=== PATIENT | female | born 1985 | race Caucasian/White ===

== ENCOUNTER 2017-02-03 15:11 | Emergency (ER) | payer OTHER ==
[2017-02-03 15:55] VITALS: BP 121/70; BMI 28.3
--- NOTE | 2017-02-03 15:57 | PDOC ---
Rapid Medical Evaluation Chief Complaint: Cold Symptoms Time Seen by Provider: 02/03/17 15:54 Medical Evaluation: Allergies Allergy/AdvReac Type Severity Reaction Status Date / Time No Known Allergies Allergy Verified 02/03/17 15:55 Vital Signs Temp Pulse Resp BP Pulse Ox 102.8 F H 95 H 20 121/70 100 02/03/17 15:49 02/03/17 15:49 02/03/17 15:49 02/03/17 15:49 02/03/17 15:49 02/03/17 15:56 URI with fevers 102.3- cough/ body aches / sorethroat pain x 2 days - works as [employer] in [facility] with exposure to INfluenza Sent INFLUENZA test 02/03/17 15:57
[2017-02-03] MEDS ORDERED: ACETAMINOPHEN 325 MG TABLET (FP) PO ONE (16:08)
--- NOTE | 2017-02-03 16:16 | PDOC ---
History of Present Illness - General Chief Complaint: Cold Symptoms Stated Complaint: FLU, COUGH, FEVER Time Seen by Provider: 02/03/17 15:54 History Source: Patient Exam Limitations: No Limitations - History of Present Illness Initial Comments: 02/03/17 16:16 CHIEF COMPLAINT: Fever HISTORY OF PRESENT ILLNESS: This is an otherwise healthy 31 year old female who presents for evaluation of 2 days of fever and bodyaches. 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 V/s on arrival are notable for T 102.8 and P 95. REVIEW OF SYSTEMS: GENERAL/CONSTITUTIONAL: Two days of fever, malaise. No weight change. HEAD, EYES, EARS, NOSE AND THROAT: No change in vision. No ear pain or discharge. No sore throat. CARDIOVASCULAR: No chest pain or palpitations. RESPIRATORY: Dry cough. No wheezing, or shortness of breath. GASTROINTESTINAL: Nausea. No vomiting, diarrhea, or constipation. GENITOURINARY: No dysuria, frequency, or change in urination. MUSCULOSKELETAL: No joint or muscle swelling or pain. No neck or back pain. SKIN: No rash or easy bruising. NEUROLOGIC: No headache, vertigo, loss of consciousness, or loss of sensation. PSYCHIATRIC: No depression or anxiety. ENDOCRINE: No increased thirst. No abnormal weight change. HEMATOLOGIC/LYMPHATIC: No anemia, easy bleeding, or history of blood clots. ALLERGIC/IMMUNOLOGIC: No hives or skin allergy. No latex allergy. PHYSICAL EXAM: GENERAL: The patient is awake, alert, and fully oriented, in no acute distress. HEAD: Normal with no signs of trauma. ENT: Pupils equal, round and reactive to light, extraocular movements intact, sclera anicteric, conjunctiva clear. Neck supple. LUNGS: Clear to auscultation bilaterally. Normal excursion. No respiratory distress or use of accessory muscles. CV: RRR, S1/S2, no MRG. Cap refill < 2 sec. ABDOMEN: Soft, non-distended, non-tender. EXTREMITIES: Normal range of motion, no edema. NEUROLOGICAL: Normal speech, normal gait. CN II-XII grossly intact. PSYCH: Normal mood, normal affect. SKIN: Warm, dry, normal turgor, no rashes or lesions noted. Past History - Past Medical History Allergies/Adverse Reactions: Allergies Allergy/AdvReac Type Severity Reaction Status Date / Time No Known Allergies Allergy Verified 02/03/17 15:55 Home Medications: Ambulatory Orders Ibuprofen [Motrin -] 600 mg PO QID PRN #30 tablet 02/03/17 Oseltamivir Phosphate [Tamiflu] 75 mg PO BID #10 capsule 02/03/17 Other medical history: DENIES - Psycho/Social/Smoking Cessation Hx Anxiety: No Suicidal Ideation: No Smoking History: Never smoked Hx Alcohol Use: No Drug/Substance Use Hx: No Substance Use Type: None *Physical Exam - Vital Signs Last Vital Signs Temp Pulse Resp BP Pulse Ox 102.8 F H 95 H 20 121/70 100 02/03/17 15:49 02/03/17 15:49 02/03/17 15:49 02/03/17 15:49 02/03/17 15:49 ED Treatment Course - Medications Given in the ED: ED Medications Discontinued Medications Generic Name Dose Route Start Last Admin Trade Name Freq PRN Reason Stop Dose Admin Acetaminophen 650 mg 02/03/17 16:08 02/03/17 16:10 Tylenol - PO 02/03/17 16:09 650 mg ONCE ONE Administration Medical Decision Making - Medical Decision Making 02/03/17 17:29 A/P: Healthy 31 year old female with flu-like symptoms and influenza exposure. 1. Tylenol for fever given with resolution 2. Flu swab 02/03/17 18:33 Rapid flu is negative, however have high suspicion and will treat. *DC/Admit/Observation/Transfer Diagnosis at time of Disposition: Influenza - Discharge Dispostion Disposition: HOME Condition at time of disposition: Stable Admit: No - Prescriptions Prescriptions: Ibuprofen [Motrin -] 600 mg PO QID PRN #30 tablet PRN Reason: Pain Or Fever Oseltamivir Phosphate [Tamiflu] 75 mg PO BID #10 capsule - Patient Instructions Printed Discharge Instructions: DI for Influenza -- Adult Additional Instructions: -Take Tamiflu as prescribed -Rest and stay well-hydrated -Stay home from work (note enclosed) -Return here for difficulty breathing or any other concerning symptoms - Post Discharge Activity Work/School Note: Back to Work
[2017-02-03 17:21] VITALS: PULSE 82; TEMP 99.6
[2017-02-03] MEDS ORDERED: OSELTAMIVIR PHOSPHATE 75 MG CAPSULE PO ONE (18:01)
== END 2017-02-03 18:42 | disposition home or self-care (01) ==
LOC: JERFT 15:11
DX: J11.1 Influenza due to unidentified influenza virus with other respiratory manifestations (principal)
CPT/HCPCS: 87804; 99281-25

== ENCOUNTER 2017-05-15 07:37 | Emergency (ER) | payer OTHER ==
[2017-05-15 07:54] VITALS: TEMP 98.3
[2017-05-15] MEDS ORDERED: SODIUM CHLORIDE 1,000 ML IV STA ×2 (08:12→10:45)
--- NOTE | 2017-05-15 08:12 | PDOC ---
History of Present Illness - General Chief Complaint: Nausea/Vomiting Stated Complaint: VOMITING, DIZZINESS Time Seen by Provider: 05/15/17 08:04 History Source: Patient Exam Limitations: No Limitations - History of Present Illness Initial Comments: CHIEF COMPLAINT: 31 y/o afebrile female, , approximately 11 week female with LMP 02/24/17 c/o vomiting, weakness and abdominal cramping. HISTORY OF PRESENT ILLNESS: The patient states she has been nauseous for most of her 1st trimester but began vomiting 1 week ago. She has mentioned it to her doctor, who suggested shital tea but prescribed no medications. She states she is vomiting up everything and now doesn't want to eat because she doesn't want to vomit. Getting ready for work this morning she states she was feeling dizzy and weak and started having some lower abdominal cramping. She denies f/c , CARMONA, cough, CP, SOB, back pain, hematuria, dysuria, diarrhea, constipation, vaginal bleeding. Vital signs on arrival are within normal limits. REVIEW OF SYSTEMS: GENERAL/CONSTITUTIONAL: No fever/chills. No weakness. No weight change. HEAD, EYES, EARS, NOSE AND THROAT: No change in vision. No ear pain or discharge. No sore throat. CARDIOVASCULAR: No chest pain or shortness of breath. RESPIRATORY: No cough, wheezing, or hemoptysis. GASTROINTESTINAL: +nausea, vomiting, abd cramping. No diarrhea or constipation. GENITOURINARY: No dysuria, frequency, or change in urination. MUSCULOSKELETAL: No joint or muscle swelling or pain. No neck or back pain. SKIN: No rash or easy bruising. NEUROLOGIC: No headache, vertigo, loss of consciousness, or loss of sensation. PHYSICAL EXAM: GENERAL: The patient is awake, alert, and fully oriented, in no acute distress. HEAD: Normal with no signs of trauma. ENT: Pupils equal, round and reactive to light, extraocular movements intact, sclera anicteric, conjunctiva clear. Neck supple. Mucous membranes mildly dry. lips dry and cracked. LUNGS: Clear to auscultation bilaterally. Normal excursion. No respiratory distress or use of accessory muscles. CV: RRR, S1/S2, no MRG. Cap refill < 2 sec. ABDOMEN: Soft, non-distended, no TTP. No rebound, guarding or rigidity. EXTREMITIES: Normal range of motion, no edema. NEUROLOGICAL: Normal speech, normal gait. CN II-XII grossly intact. PSYCH: Normal mood, normal affect. SKIN: Warm, dry, normal turgor, no rashes or lesions noted. Past History - Past Medical History Allergies/Adverse Reactions: Allergies Allergy/AdvReac Type Severity Reaction Status Date / Time No Known Allergies Allergy Verified 05/15/17 07:50 Home Medications: Ambulatory Orders Ibuprofen [Motrin -] 600 mg PO QID PRN #30 tablet 02/03/17 Oseltamivir Phosphate [Tamiflu] 75 mg PO BID #10 capsule 02/03/17 Doxylamine Succinate [Unisom] 25 mg PO Q6H #30 tablet 05/15/17 Nitrofurantoin Monohyd/M-Cryst [Macrobid -] 100 mg PO BID #14 capsule 05/15/17 - Psycho/Social/Smoking Cessation Hx Anxiety: No Suicidal Ideation: No Smoking History: Never smoked Hx Alcohol Use: No Drug/Substance Use Hx: No Substance Use Type: None *Physical Exam - Vital Signs Last Vital Signs Temp Pulse Resp BP Pulse Ox 98.3 F 77 20 103/62 99 05/15/17 07:47 05/15/17 07:47 05/15/17 07:47 05/15/17 07:47 05/15/17 07:47 ED Treatment Course - LABORATORY CBC & Chemistry Diagram: 05/15/17 08:25 05/15/17 08:25 Medical Decision Making - Medical Decision Making A/P: 31 y/o female with hyperemesis gravidarum. Plan is as follows: 1. Labs 2. UA/culture 3. IV fluids x 2 4. Reglan 5. ultrasound Ultrasound IMPRESSION: Single, live intrauterine of 12 weeks, 4 days 3 WBC in urine with 1+ Leuks. will treat with macrobid for UTI. Gave the patient all of her results. She states she feels much better. Will also discharge with Unisom for nausea/vomiting. Instructed her to take both as prescribed, keep hydrated, follow up with her OB/ [facility] as soon as possible and return to the ER with any worsening or concerning symptoms. The patient verbalizes understanding of all instructions, has no further questions and is awaiting discharge. *DC/Admit/Observation/Transfer Diagnosis at time of Disposition: Hyperemesis gravidarum UTI (urinary tract infection) Qualifiers: Urinary tract infection type: acute cystitis Hematuria presence: with hematuria Qualified Code(s): N30.01 - Acute cystitis with hematuria - Discharge Dispostion Disposition: HOME Condition at time of disposition: Improved - Prescriptions Prescriptions: Nitrofurantoin Monohyd/M-Cryst [Macrobid -] 100 mg PO BID #14 capsule Doxylamine Succinate [Unisom] 25 mg PO Q6H #30 tablet - Patient Instructions Printed Discharge Instructions: DI for Hyperemesis Gravidarum, DI for Urinary Tract Infection (UTI) Additional Instructions: Discharge Instructions: -2 prescriptions have been sent to your pharmacy; one is for vomiting and 1 is for Urinary tract infection; please take as prescribed -Your ultrasound and lab work was all normal -Please follow up with your [facility] as soon as possible -Return to the ER with any worsening or concerning symptoms.
[2017-05-15 08:32] LABS: RDW 25.1 % (11.6-15.6)
[2017-05-15] MEDS ORDERED: METOCLOPRAMIDE HCL INJECTION 10 MG/2 ML VIAL IVPB ONE (08:33)
[2017-05-15 08:35] LABS: URINE APPEARANCE CLEAR; URINE BILIRUBIN NEGATIVE (NEGATIVE); URINE COLOR YELLOW; URINE GLUCOSE (UA) NEGATIVE (NEGATIVE); URINE KETONE NEGATIVE (NEGATIVE); URINE NITRITE NEGATIVE (NEGATIVE); URINE PROTEIN NEGATIVE (NEGATIVE); URINE UROBILINOGEN NEGATIVE E.U./dl (0.2-1.0)
[2017-05-15] MEDS ORDERED: METOCLOPRAMIDE HCL INJECTION 10 MG/2 ML VIAL ONE (08:38)
[2017-05-15 08:49] LABS: BASOPHIL 0.4 % (0-2.0); EOSINOPHIL 0.3 % (0-4.5); MCH 26.5 pg (25.7-33.7); MCHC 34.1 g/dl (32.0-36.0); MEAN CELL VOLUME 77.8 fl (80-96); MEAN PLT VOLUME 7.5 fl (7.5-11.1); NEUTROPHILS 70.1 % (42.8-82.8); PLATELET COUNT 202 K/MM3 (134-434); WHITE BLOOD COUNT 5.2 K/mm3 (4.0-10.0)
[2017-05-15 08:51] LABS: URINE BLOOD 1+ (NEGATIVE); URINE LEUK ESTERASE 1+ (NEGATIVE)
[2017-05-15 08:57] LABS: ALBUMIN 3.7 g/dl (3.4-5.0); ALK PHOS 46 U/L (45-117); ANION GAP 8 (8-16); BILIRUBIN,TOTAL 0.4 mg/dL (0.2-1.0); CALCIUM 8.5 mg/dL (8.5-10.1); CO2 24 mmol/L (21-32); CREATININE 0.5 mg/dL (0.55-1.02); GLUCOSE,RANDOM 84 mg/dL (74-106); SGOT/AST 15 U/L (15-37); SGPT/ALT 12 U/L (12-78); TOT PROT 7.3 g/dl (6.4-8.2); URINE BACTERIA RARE /hpf (NONE SEEN); URINE MUCUS FEW; URINE RBC 2 /hpf (0-3); URINE WBC 3 /hpf (3-5)
[2017-05-15 12:37] VITALS: BP 98/50; PULSE 69
== END 2017-05-15 12:56 | disposition home or self-care (01) ==
LOC: JER 07:37
PROC: 3E0337Z Introduction of Electrolytic and Water Balance Substance into Peripheral Vein, Percutaneous Approach (ICD-10-PCS; principal; 2017-05-15)
PROC: 3E033GC Introduction of Other Therapeutic Substance into Peripheral Vein, Percutaneous Approach (ICD-10-PCS; 2017-05-15)
DX: O21.0 Mild hyperemesis gravidarum (principal); O23.11 Infections of bladder in pregnancy, first trimester; Z3A.12 12 weeks gestation of pregnancy
CPT/HCPCS: 36415; 76801-TC; 80053; 81003; 81015; 85025; 87086; 99282-25